=== PATIENT | male | born 1950 | race Asian ===

== ENCOUNTER 2019-07-07 22:40 | Inpatient (IN) | payer MEDICARE ==
[~2019-07-07] VITALS: Ht 165.1 cm; Wt 74.1 kg
[2019-07-07 23:26] LABS: BASOPHILS # (AUTO) 0.2 K/uL (0.0-8.0); BASOPHILS % (AUTO) 1.5 % (0.0-2.0); EOSINOPHILS # (AUTO) 0.3 K/uL (0.0-0.7); EOSINOPHILS % (AUTO) 1.8 % (0.0-7.0); HEMOGLOBIN 11.2 g/dL (12.5-16.3); LYMPHOCYTES # (AUTO) 4.4 K/uL (20.0-40.0); LYMPHOCYTES % (AUTO) 26.4 % (20.5-51.5); MEAN CORPUSCULAR HEMOGLOBIN 26.4 uug (23.8-33.4); MEAN CORPUSCULAR HGB CONC 32 g/dL (32.5-36.3); MEAN CORPUSCULAR VOLUME 82.7 fL (73.0-96.2); MONOCYTES # (AUTO) 1.4 K/uL (2.0-10.0); MONOCYTES % (AUTO) 8.5 % (0.0-11.0); NEUTROPHILS # (AUTO) 10.3 K/uL (1.8-8.9); NEUTROPHILS % (AUTO) 61.8 % (38.5-71.5); PLATELET COUNT (AUTO) 493 K/uL (152-348); RED BLOOD CELL COUNT(AUTO) 4.24 MIL/uL (4.06-5.63); WHITE BLOOD COUNT (AUTO) 16.7 K/uL (3.6-10.2)
[2019-07-07 23:35] LABS: CARBON DIOXIDE 25 mmol/L (21-32); CHLORIDE 108 mmol/L (98-107); CREATININE 1.8 mg/dL (0.6-1.3); GLUCOSE 89 mg/dL (74-106); POTASSIUM 5.1 mmol/L (3.5-5.1); UREA NITROGEN, BLOOD 16 mg/dL (7-18)
[2019-07-07 23:51] LABS: ETHANOL < 3 MG/DL (0-0)
[2019-07-07 23:54] LABS: *BILIRUBIN,URIN NEGATIVE (NEGATIVE); *CLARITY,URINE CLEAR (CLEAR); *COLOR,URINE YELLOW (YELLOW); *KETONES,URINE NEGATIVE (NEGATIVE); *UROBILINOGEN,URINE 0.2 E.U./dl (NORMAL); LEUKOCYTE ESTERASE ,URINE NEGATIVE (NEGATIVE); NITRITE, URINE NEGATIVE (NEGATIVE); UGLUCOSE NEGATIVE (NEGATIVE)
[2019-07-07 23:56] LABS: ALANINE AMINOTRANSFERASE 19 U/L (16-63); ALKALINE PHOSPHATASE 113 U/L (50-136); ASPARTATE AMINOTRANSFERASE 16 U/L (15-37); BILIRUBIN,TOTAL 0.4 mg/dL (0.2-1.0); TOTAL PROTEIN, SERUM 7.7 g/dL (6.4-8.2)
[2019-07-07 23:58] LABS: ACETAMINOPHEN < 2.0 ug/mL (10-30); BILIRUBIN,DIRECT < 0.1 mg/dL (0.0-0.2)
[2019-07-07 23:59] LABS: *BLOOD, URINE TRACE (NEGATIVE)
[2019-07-08 00:02] LABS: BACTERIA,URINE NONE SEEN /HPF (NONE SEEN); RBC,URINE 0-3 /HPF (0-3); SQUAMOUS EPITHELIAL CELL,UR FEW /HPF (NONE SEEN); WBC,URINE 0-3 /HPF (0-3)
[2019-07-08 00:17] LABS: *AMPHETAMINE, URINE NEGATIVE (NEGATIVE); *BARBITURATE, URINE NEGATIVE (NEGATIVE); *CANNABINOID, URINE NEGATIVE (NEGATIVE); *COCCAINE, URINE NEGATIVE (NEGATIVE); *OPIATE, URINE NEGATIVE (NEGATIVE); *PHENCYCLIDINE SCREEN,URINE NEGATIVE (NEGATIVE)
--- NOTE | 2019-07-08 00:38 | NUR ---
Pt is medically cleared by Dr. Perry.
[2019-07-08] MEDS ORDERED: HYDROCODONE/APAP 5-325MG TABLET ONE (00:40)
[2019-07-08] MEDS ORDERED: HYDROCODONE/APAP 5-325MG TABLET PO ONE (00:45)
--- NOTE | 2019-07-08 01:03 | NUR ---
Pt. admitted to MHU (3rd flow overflow) , under care of Dr. Ruelas/Shirley. Diagnosis: Psychosis. 5150 Hold GD. Belongs List completed. MRSA swab done.
[2019-07-08 02:15] VITALS: BP 196/110
[2019-07-08] MEDS ORDERED: LORAZEPAM 0.5 MG TABLET PO PRN (03:00)
[2019-07-08] MEDS ORDERED: MAGNESIUM HYDROXIDE 30 ML LIQUID UDC PO PRN ×2 (03:00→12:00)
[2019-07-08] MEDS ORDERED: MAG HYDROX/AL HYDROX/SIMETH 30 ML LIQUID UDC PO PRN (03:00)
[2019-07-08 03:16] VITALS: BP 148/98
--- NOTE | 2019-07-08 04:33 | NUR ---
68 YEAR OLD MALE BIB ER STAFF TO [facility] UNIT [facility] OVERFLOW VIA GURNEY. PT ADMITTED FOR GD AND PSYCHOSIS. ACCORDING TO THE HOLD, PT HAVE BEEN MAKING ALLEGATIONS TOWARDS STAFF INCLUDING THAT HIS FOOD IS TAINTED BY URINE AND FECES, AND HE IS MAKING PARANOID MANIC REFERENCES TO RACIAL STATUS TO NURSES. RN CONCURS WITH THE HOLD. ADVISEMENT AND PATIENT RIGHTS HANDBOOK GIVEN TO PT. UPON FACE TO FACE ASSESSMENT, PT APPEARS TO REFLECT ON WHAT IS ON THE HOLD. PT IS A+OX3. 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 BELONGINGS INVENTORIED. PT COOPERATIVE WITH ADMISSION PROCESS. SOME PAPERS PT REFUSED TO SIGNS. ALF ASSESSMENT DONE. PT ORIENTED TO THE UNIT AND HIS ROOM. SAFETY EMPHASIZED. PT AGREED TO CONTRACT FOR SAFETY. DR. ORTEGA AND DR. CESPEDES NOTIFIED OF ADMISSION. PT IN NO ACUTE DISTRESS. FALL PRECAUTIONS OBSERVED. WILL CLOSELY MONITOR.
--- NOTE | 2019-07-08 06:00 | NUR ---
PT SLEPT 4 HOURS.PT PLEASANT WHEN APPROACHED. PT IN NO ACUTE DISTRESS. SAFETY AND COMFORT PROVIDED.WILL ENDORSE TO INCOMING NURSE FOR CONTINUITY OF CARE.
--- NOTE | 2019-07-08 07:30 | NUR ---
PATIENT CALM AND COMFORTABLE UPON INITIAL ASSESSMENT WITH NO SIGNS OF DISTRESS; PATIENT WILL CONTINUE TO BE MONITORED.
[2019-07-08 07:34] VITALS: BP 187/117
[2019-07-08 11:59] VITALS: BP 218/131
[2019-07-08] MEDS ORDERED: ATENOLOL 25 MG TABLET PO SCH ×2 (12:00)
[2019-07-08] MEDS ORDERED: IBUPROFEN 600 MG TABLET PO PRN (12:00)
--- NOTE | 2019-07-08 12:27 | NUR ---
Social Work Initial Discharge: Patient currently resides [facility] [address] [place] [address];([phone]). service worker will work with the patient and MD regarding appropriate discharge planning. service worker will form a safe and proper discharge.
--- NOTE | 2019-07-08 12:27 | NUR ---
Social Work Family Contact: Patient does not have any family members.
[2019-07-08] MEDS: CLONIDINE HCL 0.2 MG TABLET PO PRN (12:37)
[2019-07-08] MEDS: ATENOLOL 50 MG TABLET PO SCH (12:38)
[2019-07-08 15:45] VITALS: BP 142/56
--- NOTE | 2019-07-08 18:42 | NUR ---
PATIENT WITH 1:1 SITTER THROUGH OUT SHIFT ; PATIENT MEDICATION COMPLIANT ; PATIENT BLOOD PRESSURE HIGH IN MORNING; MD PLACED AFTERNOON MEDS AND BLOOD PRESSURE REDUCED TO STABLE LEVEL. PATIENT OTHERWISE IN STABLE CONDITION.
[2019-07-08] MEDS: OLANZAPINE 2.5 MG TABLET PO SCH (18:45)
--- NOTE | 2019-07-08 20:00 | NUR ---
ASLEEP, RESTING COMFORTABLY SITTER AT BEDSIDE.
[2019-07-08 20:09] VITALS: BP 168/88
--- NOTE | 2019-07-08 23:55 | NUR ---
AWAKE,REFUSED TO GIVE SPECIMEN,VERY ANGRY,URINATES IN THE BATHROOM., BACK TO BED
--- NOTE | 2019-07-09 06:06 | NUR ---
SLEPT 8 HOURS. QUIET AT THIS TIME.
[2019-07-09 06:12] LABS: BASOPHILS # (AUTO) 0.1 K/uL (0.0-8.0); BASOPHILS % (AUTO) 0.7 % (0.0-2.0); EOSINOPHILS # (AUTO) 0.3 K/uL (0.0-0.7); EOSINOPHILS % (AUTO) 2.7 % (0.0-7.0); HEMATOCRIT 38.6 % (36.7-47.1); LYMPHOCYTES # (AUTO) 3.7 K/uL (20.0-40.0); LYMPHOCYTES % (AUTO) 28.4 % (20.5-51.5); MEAN CORPUSCULAR HEMOGLOBIN 25.9 uug (23.8-33.4); MEAN CORPUSCULAR HGB CONC 31 g/dL (32.5-36.3); MEAN CORPUSCULAR VOLUME 83.5 fL (73.0-96.2); MONOCYTES % (AUTO) 7.9 % (0.0-11.0); NEUTROPHILS # (AUTO) 7.8 K/uL (1.8-8.9); NEUTROPHILS % (AUTO) 60.3 % (38.5-71.5); PLATELET COUNT (AUTO) 519 K/uL (152-348); RED BLOOD CELL COUNT(AUTO) 4.62 MIL/uL (4.06-5.63)
[2019-07-09 06:44] LABS: BILIRUBIN,TOTAL 0.6 mg/dL (0.2-1.0); CREATININE 2.1 mg/dL (0.6-1.3); MAGNESIUM 1.9 mg/dL (1.8-2.4); PHOSPHOROUS 4.3 mg/dL (2.5-4.9); POTASSIUM 5.3 mmol/L (3.5-5.1); TOTAL PROTEIN, SERUM 7.6 g/dL (6.4-8.2)
[2019-07-09] MEDS: CLONIDINE HCL 0.2 MG TABLET PO PRN (07:19)
[2019-07-09] MEDS ORDERED: IBUPROFEN 600 MG TABLET PO PRN (07:30)
[2019-07-09] MEDS: OLANZAPINE 2.5 MG TABLET PO SCH (09:00)
[2019-07-09] MEDS: MULTIVIT, IRON, MIN NO. 8, FA TABLET PO SCH (09:00)
[2019-07-09] MEDS: ATENOLOL 50 MG TABLET PO SCH (09:00)
[2019-07-09] MEDS ORDERED: TRAMADOL HCL 50 MG TABLET PO PRN (10:00)
[2019-07-09 11:28] LABS: *BILIRUBIN,URIN NEGATIVE (NEGATIVE); *CLARITY,URINE SLIGHTLY CLOUDY (CLEAR); *COLOR,URINE YELLOW (YELLOW); *KETONES,URINE NEGATIVE (NEGATIVE); *UROBILINOGEN,URINE 0.2 E.U./dl (NORMAL); LEUKOCYTE ESTERASE ,URINE NEGATIVE (NEGATIVE); NITRITE, URINE NEGATIVE (NEGATIVE); UGLUCOSE NEGATIVE (NEGATIVE)
[2019-07-09 11:35] LABS: *CREATININE,URINE 48.8 mg/dL (30-125); *URINE TOTAL PROTEIN RANDOM 183.2 mg/dL (<150/24HR)
[2019-07-09 11:39] LABS: *BLOOD, URINE TRACE (NEGATIVE)
[2019-07-09 11:43] LABS: BACTERIA,URINE FEW /HPF (NONE SEEN); RBC,URINE 0-3 /HPF (0-3); SQUAMOUS EPITHELIAL CELL,UR FEW /HPF (NONE SEEN); WBC,URINE 0-3 /HPF (0-3)
[2019-07-09 12:02] VITALS: BP 106/52
[2019-07-09 16:00] VITALS: BP 134/76
--- NOTE | 2019-07-09 19:12 | NUR ---
Patient calm and comfortable through out shift ; patient with no signs of distress; patient placed on 14 day hold and made aware. Report given to oncoming nurse.
--- NOTE | 2019-07-09 19:20 | NUR ---
Received patient lying in bed. AAOX4. In no acute distress. Denies any SOB. Complained of generalized pain, and requesting Tylenol. Will provide Tylenol per order. VS WNL. 1:1 sitter on site. No behavioral issues noted at this time. Continue to monitor.
[2019-07-09] MEDS: ACETAMINOPHEN 325 MG TABLET PO PRN (19:46)
[2019-07-09 20:00] VITALS: BP 128/61
[2019-07-09] MEDS: ATORVASTATIN 20 MG TABLET PO SCH (20:11)
[2019-07-09] MEDS: OLANZAPINE 5 MG TABLET PO SCH (20:11)
[2019-07-09] MEDS: TEMAZEPAM 7.5 MG CAPSULE PO PRN (21:44)
--- NOTE | 2019-07-10 05:54 | NUR ---
Patient slept well last night. In no acute distress. Denies any further pain. No SOB. 1:1 sitter on site. No behavioral issues noted. Calm and pleasant. Safety measure maintained.
[2019-07-10 07:15] VITALS: BP 142/79
--- NOTE | 2019-07-10 08:00 | NUR ---
RE CEIVED PT RESTING IN BED. NO ACUTE DISTRESS OR SOB NOTED. PT STATES HAVING PAIN AT THIS TIME WILL ADMINISTER MEDS FOR PAIN MANAGEMENT. BED LOCKED AND IN LOW POSITION. 1:1 SITTER AT BEDSIDE FOR SAFETY. WILL CONTINUE TO MONITOR FOR SAFETY AND COMFORT.
[2019-07-10] MEDS: MULTIVIT, IRON, MIN NO. 8, FA TABLET PO SCH (08:43)
[2019-07-10] MEDS: ASCORBIC ACID 500 MG TABLET PO SCH (08:43)
[2019-07-10] MEDS: OLANZAPINE 2.5 MG TABLET PO SCH (08:44)
[2019-07-10] MEDS: ATENOLOL 50 MG TABLET PO SCH (08:44)
[2019-07-10] MEDS: ACETAMINOPHEN 325 MG TABLET PO PRN ×2 (08:44→21:57)
--- NOTE | 2019-07-10 08:45 | NUR ---
PT REFUSED ZYPREXA AT THIS TIME.
--- NOTE | 2019-07-10 09:53 | NUR ---
Social Work Individual Therapy: harvest worker met with patient for brief counseling to address patients delusional thought content. Patient states This policy writer sales assessed to see if patient is experiencing auditory/visual hallucinations he stated "no I am not crazy". This policy writer sales encouraged if she feels in danger to contact either this policy writer sales or the nursing staff. This policy writer sales comforted patient.
[2019-07-10 11:11] LABS: A/G RATIO 0.7 (0.7-1.7); ALBUMIN 2.7 g/dL (2.9-4.4); ALPHA-1-GLOBULIN 0.3 g/dL (0.0-0.4); ALPHA-2-GLOBULIN 1.3 g/dL (0.4-1.0); BETA GLOBULIN 1.4 g/dL (0.7-1.3); GAMMA GLOBULIN 0.9 g/dL (0.4-1.8); GLOBULIN, TOTAL 3.8 g/dL (2.2-3.9); M-SPIKE Not Observed g/dL (Not Observed)
[2019-07-10 12:19] LABS: BASOPHILS # (AUTO) 0.1 K/uL (0.0-8.0); BASOPHILS % (AUTO) 1.1 % (0.0-2.0); EOSINOPHILS # (AUTO) 0.3 K/uL (0.0-0.7); EOSINOPHILS % (AUTO) 2.5 % (0.0-7.0); HEMATOCRIT 37.2 % (36.7-47.1); HEMOGLOBIN 11.9 g/dL (12.5-16.3); LYMPHOCYTES # (AUTO) 3.6 K/uL (20.0-40.0); LYMPHOCYTES % (AUTO) 28.2 % (20.5-51.5); MEAN CORPUSCULAR HEMOGLOBIN 26.6 uug (23.8-33.4); MEAN CORPUSCULAR HGB CONC 32 g/dL (32.5-36.3); MEAN CORPUSCULAR VOLUME 83.3 fL (73.0-96.2); MONOCYTES # (AUTO) 1.2 K/uL (2.0-10.0); MONOCYTES % (AUTO) 9.1 % (0.0-11.0); NEUTROPHILS # (AUTO) 7.5 K/uL (1.8-8.9); NEUTROPHILS % (AUTO) 59.1 % (38.5-71.5); PLATELET COUNT (AUTO) 542 K/uL (152-348); RED BLOOD CELL COUNT(AUTO) 4.47 MIL/uL (4.06-5.63); WHITE BLOOD COUNT (AUTO) 12.7 K/uL (3.6-10.2)
[2019-07-10 12:33] LABS: BILIRUBIN,TOTAL 0.4 mg/dL (0.2-1.0); CREATININE 2.3 mg/dL (0.6-1.3); MAGNESIUM 2.1 mg/dL (1.8-2.4); PHOSPHOROUS 4.7 mg/dL (2.5-4.9); POTASSIUM 5.1 mmol/L (3.5-5.1); TOTAL PROTEIN, SERUM 7.6 g/dL (6.4-8.2)
--- NOTE | 2019-07-10 14:46 | NUR ---
Social Work Coordination of Care: preparation room worker faxed [facility]idy ([phone]) and sent patient's [facility] psychiatric notes and progress notes.
[2019-07-10 15:54] VITALS: BP 158/88
[2019-07-10] MEDS ORDERED: IV NS 1000 ML 1,000 ML IV PRN (16:22)
--- NOTE | 2019-07-10 18:05 | NUR ---
PT TRANSFERRED TO MHU. NO ACUTE DISTRESS NOTED.NO SOB NOTED. BELONGINGS WITH PATIENT. REPORT GIVEN TO MHU UNIT.
--- NOTE | 2019-07-10 18:45 | NUR ---
Gps/Senior Vice President- Received from 3rd floor overflow , via wheel chair, oriented to unit settings, no distress,back discomfort, but refused any prn at this time. Safety reviewed and emphasized, verbalized understanding.
[2019-07-10 20:09] VITALS: BP 205/99
[2019-07-10] MEDS: ATORVASTATIN 20 MG TABLET PO SCH (20:22)
[2019-07-10] MEDS: OLANZAPINE 5 MG TABLET PO SCH ×2 (20:22→21:00)
[2019-07-10] MEDS: CLONIDINE HCL 0.2 MG TABLET PO PRN (20:23)
--- NOTE | 2019-07-10 20:30 | NUR ---
GPS/NSG Patient refuses IV fluids, Dr. Matt Kong, physician databases computer consultant contacted and informed. No further orders given, will endorse to nurse in a.m. to follow up with Dr. Vasquez regarding order. labs order for a.m.
[2019-07-10 22:00] VITALS: BP 149/74
[2019-07-10] MEDS: TEMAZEPAM 7.5 MG CAPSULE PO PRN (22:08)
--- NOTE | 2019-07-11 06:49 | NUR ---
GPS: Pt.refused scheduled blood drawing earlier despite explanation of risks vs benefits x3. Numerous attempts were attempted but unsuccessful. Pt.starting to get agitated and angry when being persuaded. Also refusing IVF when attempted to start on him. Endorsed to incoming nurse.
[2019-07-11 07:30] VITALS: BP 142/72
--- NOTE | 2019-07-11 08:03 | NUR ---
Social Work Discharge Note: Patient will be discharged to jail facility, [facility] [address] [place] [address]; ) via Ambulance transportation at 12PM. Dispensary Clerk spoke with Sarah Retort Fireman at [facility]; ([phone]), who stated patient will be accepted back at facility today. Patient does not have any family members. Patient is alert and oriented x2-3 and is unable to plan for self-care. Patient denies any suicidal or homicidal ideations. Patient is aware and agreeable with discharge plans. Patient will continue to follow-up with Psychiatrist Dr. Ruelas and Housekeeper Nanny Dr. Pierce at [facility] [address] [place] [address]; ). Patient presents with euthymic mood and congruent affect.
--- NOTE | 2019-07-11 08:04 | NUR ---
Social Work Firearms Note: Surveillance Officer completed and submitted a [employer] firearms report for 5150 grave disability certification. A copy of report has been placed in patient chart.
[2019-07-11] MEDS: OLANZAPINE 2.5 MG TABLET PO SCH (09:00)
[2019-07-11] MEDS: ATENOLOL 50 MG TABLET PO SCH (09:04)
[2019-07-11] MEDS: ASCORBIC ACID 500 MG TABLET PO SCH (09:04)
[2019-07-11] MEDS: MULTIVIT, IRON, MIN NO. 8, FA TABLET PO SCH (09:04)
--- NOTE | 2019-07-11 11:04 | NUR ---
Gps/Transit Bus Driver- Discharge planning in progress patient will be goinf back to [facility] via ambulance, patient was well informed
--- NOTE | 2019-07-11 13:00 | NUR ---
Gps/Contracts Paralegal-Called [facility] spoked to Griselda (Nurse) report was given, also was informed b/p /, clonidine 0.2 mg po was administered as ordered. All belongings given back to the patient . Discharged in [facility] via ambulance, no complaints noted.
[2019-07-11 13:15] VITALS: BP 166/77
[2019-07-11] MEDS: CLONIDINE HCL 0.2 MG TABLET PO PRN (13:15)
== END 2019-07-11 13:20 | DRG 885 ==
LOC: ER 22:40 → UNDOADMIN 07-08 01:23 → GPSOV3 07-08 01:23 → GPS 07-10 18:20
PROVIDERS: ADMIT Psychiatry & Neurology Psychosomatic Medicine; ATTEND Internal Medicine
DX: F25.0 Schizoaffective disorder, bipolar type (principal); N18.9 Chronic kidney disease, unspecified; N17.0 Acute kidney failure with tubular necrosis; N25.81 Secondary hyperparathyroidism of renal origin; E78.5 Hyperlipidemia, unspecified; M79.7 Fibromyalgia; I12.9 Hypertensive chronic kidney disease with stage 1 through stage 4 chronic kidney disease, or unspecified chronic kidney disease; G62.9 Polyneuropathy, unspecified; F41.9 Anxiety disorder, unspecified; F09 Unspecified mental disorder due to known physiological condition; Z79.899 Other long term (current) drug therapy
CPT/HCPCS: 36415; 71045; 73030; 73060; 73080; 76770; 80307; 83735; 83970; 84100; 84155; 84156; 84165; 84300; 85025; 93005; A4663; G0480; G0480-TC